=== PATIENT | female | born 1980 | race Hispanic/Latino ===

== ENCOUNTER 2020-09-23 16:02 | Emergency (ER) | payer OTHER, SELFPAY ==
--- NOTE | 2020-09-23 17:22 | ER ---
Nurse's Notes [facility] Name: Ira Michaud Age: 40 yrs Sex: Female : 1980 Arrival Date: 09/23/2020 Time: 16:04 Bed 8 Private MD: Diagnosis: Lower abdominal pain, unspecified Presentation: 09/23 16:08 Chief complaint: Patient states: "I was coming coming home from out of town and I got jd3 this sharp pain on my ride side that goes around to my back.". Coronavirus screen: At this time, the client does not indicate any symptoms associated with coronavirus-19. Ebola Screen: Patient negative for fever greater than or equal to 101.5 degrees Fahrenheit, and additional compatible Ebola Virus Disease symptoms. Initial Sepsis Screen: Does the patient meet any 2 criteria? No. Patient's initial sepsis screen is negative. Does the patient have a suspected source of infection? No. Patient's initial sepsis screen is negative. Risk Assessment: Do you want to hurt yourself or someone else? Patient reports no desire to harm self or others. Onset of symptoms was September 23, 2020. 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 - Social history:: Smoking status: Patient denies any tobacco usage or history of. Screenin:00 Abuse screen: Denies threats or abuse. Denies injuries from another. Nutritional jl7 screening: No deficits noted. Tuberculosis screening: No symptoms or risk factors identified. Assessment: 17:10 Reassessment: Pt ambulated to bathroom with steady gate. After returning reports "I had jl7 a lot of gas released while I was in the exam room waiting for the doctor so I went to the bathroom and I feel a lot better." Reports BM of normal consistency, no pain at this time. Requesting discharge. ERP notified. 17:20 Reassessment: ERP at bedside. jl7 Vital Signs: 16:09 BP 126 / 92; Pulse 115; Resp 19 S; Temp 98.4(O); Pulse Ox 100% on R/A; Weight 92.99 kg jd3 (R); Height 5 ft. 1 in. (154.94 cm) (R); Pain 8/10; 16:09 Body Mass Index 38.73 (92.99 kg, 154.94 cm) jd3 ED Course: 16:04 Patient arrived in ED. as 16:09 Triage completed. jd3 16:11 Arm band placed on. jd3 16:27 Abdoul Purvis, GOLDEN is Primary Nurse. jl7 16:35 Willis Turner PA is PHCP. [facility] 16:35 Son Conklin MD is Attending Physician. [facility] 17:00 Patient has correct armband on for positive identification. Placed in gown. Bed in low jl7 position. Call light in reach. Side rails up X 1. Pulse ox on. NIBP on. 17:26 No provider procedures requiring assistance completed. Patient did not have IV access jl7 during this emergency room visit. Administered Medications: No medications were administered Outcome: 17:21 Discharge ordered by MD. [facility] 17:26 Discharged to home ambulatory. jl7 17:26 Condition: stable 17:26 Discharge instructions given to patient, Instructed on discharge instructions, follow up and referral plans. Demonstrated understanding of instructions, follow-up care. 17:27 Patient left the ED. jl7 Signatures: Willis Turner PA PA [facility] Ni Cardozo Jahala, RN RN jl7 Marlon Johnson RN RN jd3 Corrections: (The following items were deleted from the chart) 17:20 17:00 Reassessment: Pt ambulated to bathroom with steady gate. After returning reports jl7 "I had a lot of gas released while I was in the exam room waiting for the doctor so I went to the bathroom and I feel a lot better." Reports BM of normal consistency, no pain at this time. Requesting discharge. ERP notified jl7
--- NOTE | 2020-09-23 17:22 | EDPHYS ---
Physician Documentation [facility] Name: Ira Michaud Age: 40 yrs Sex: Female : 1980 Arrival Date: 09/23/2020 Time: 16:04 Bed 8 Private MD: ED Physician Son Conklin HPI: 09/23 16:04 This 40 yrs old Female presents to ER via Ambulatory with complaints of jmm Abdominal Pain, Back Pain. 16:04 The patient presents with abdominal pain right lower quadrant. Onset: The jmm symptoms/episode began/occurred acutely, just prior to arrival. The symptoms radiate to Associated signs and symptoms: Pertinent negatives: nausea and vomiting, diarrhea, fever. The symptoms are described as achy, sharp. Modifying factors: The symptoms are alleviated by flatus. This is a 40 year old female with a history of graves disease that presents to the ED with complaints of right lower abdominal pain which developed while [place] from [place]. Patient denies vomiting or diarrhea. Patient states that while in the ED had an episode of flatus which immediately relieved the symptoms. . 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 - Social history:: Smoking status: Patient denies any tobacco usage or history of. ROS: 16:04 Constitutional: Negative for fever, chills, and weight loss, Cardiovascular: Negative jmm for chest pain, palpitations, and edema, Respiratory: Negative for shortness of breath, cough, wheezing, and pleuritic chest pain. 16:04 Abdomen/GI: Positive for abdominal pain. 16:04 All other systems are negative. Exam: 16:04 Constitutional: This is a well developed, well nourished patient who is awake, alert, jmm and in no acute distress. Head/Face: atraumatic. Eyes: EOMI, no conjunctival erythema appreciated ENT: Moist Mucus Membranes Neck: Trachea midline, Supple Chest/axilla: Normal chest wall appearance and motion. Cardiovascular: Regular rate and rhythm. No edema appreciated Respiratory: Normal respirations, no respiratory distress appreciated 16:04 Back: Normal ROM Skin: General appearance color normal MS/ Extremity: Moves all extremities, no obvious deformities appreciated, no edema noted to the lower extremities Neuro: Awake and alert, normal gait Psych: Behavior is normal, Mood is normal, Patient is cooperative and pleasant 16:04 Abdomen/GI: Inspection: abdomen appears normal, Bowel sounds: normal, Palpation: soft, nontender, in all quadrants. Vital Signs: 16:09 BP 126 / 92; Pulse 115; Resp 19 S; Temp 98.4(O); Pulse Ox 100% on R/A; Weight 92.99 kg jd3 (R); Height 5 ft. 1 in. (154.94 cm) (R); Pain 8/10; 16:09 Body Mass Index 38.73 (92.99 kg, 154.94 cm) jd3 MDM: 17:02 Patient medically screened. jaime 17:21 Data reviewed: vital signs, nurses notes. Counseling: I had a detailed discussion with jaime the patient and/or guardian regarding: the historical points, exam findings, and any diagnostic results supporting the discharge/admit diagnosis, the need for outpatient follow up, to return to the emergency department if symptoms worsen or persist or if there are any questions or concerns that arise at home. Administered Medications: No medications were administered Disposition: 09/23/20 17:21 Discharged to Home. Impression: Lower abdominal pain, unspecified. - Condition is Stable. - Discharge Instructions: Abdominal Pain, Adult. - Medication Reconciliation Form, Thank You Letter, Antibiotic Education, Prescription Opioid Use form. - Follow up: Private Physician; When: 2 - 3 days; Reason: Recheck today's complaints, Continuance of care, Re-evaluation by your physician. Addendum: 09/25/2020 14:37 Co-signature as Attending Physician, Son Conklin MD I agree with the assessment and k dr plan of care. Signatures: Dispatcher [employer] EDSon Apodaca MD MD kdr Mickail, Joel, PA PA jmm Leal, Jahala, RN RN jl7 Marlon Johnson RN RN jd3 Corrections: (The following items were deleted from the chart) 09/23 17:23 17:11 IV Saline Lock ordered. jaime meeks 17:23 17:11 Labs collected and sent ordered. [facility] jl7 17:23 17:11 Urine Dipstick-Ancillary ordered. [facility] jl7 17:24 17:12 BASIC METABOLIC PANEL+C.LAB.BRZ ordered. [facility] EDMS 17:24 17:12 CBC+H.LAB.BRZ ordered. [facility] EDMS 17:24 17:12 HEPATIC FUNCTION+C.LAB.BRZ ordered. [facility] EDMS 17:24 17:12 LIPASE+C.LAB.BRZ ordered. [facility] EDMS 17: 17:21 09/23/2020 17:21 Discharged to Home. Impression: Lower abdominal pain, jl7 unspecified. Condition is Stable. Forms are Medication Reconciliation Form, Thank You Letter, Antibiotic Education, Prescription Opioid Use. Follow up: Private Physician; When: 2 - 3 days; Reason: Recheck today's complaints, Continuance of care, Re-evaluation by your physician. jaime
[2020-09-23 17:34] VITALS: BP 126/92; TEMP 98.4; O2SAT 100
== END 2020-09-23 17:27 | disposition home or self-care (01) ==
LOC: ER 16:02
DX: R10.31 Right lower quadrant pain (principal)
CPT/HCPCS: 99283